=== PATIENT | male | born 1950 | race Caucasian/White ===

== ENCOUNTER 2025-08-31 09:29 | Emergency (ER) | payer OTHER ==
[~2025-08-31] VITALS: Ht 185.4 cm; Wt 97.5 kg
[2025-08-31 10:21] LABS: PLATELET COUNT (AUTO) 72 K/uL (150-450); RED BLOOD CELL COUNT(AUTO) 4.73 MIL/uL (4.5-6.0); RED CELL DISTRIBUTION WIDTH 15.3 % (11.5-15.0); WHITE BLOOD COUNT (AUTO) 3.0 K/uL (4.3-11.0)
[2025-08-31 10:28] LABS: CALCIUM, SERUM 8.9 mg/dL (8.5-10.1); CREATININE 1.0 mg/dL (0.6-1.3); SODIUM SERUM 141 mmol/L (136-145); UREA NITROGEN, BLOOD 17 mg/dL (7-18)
[2025-08-31 10:41] LABS: ASPARTATE AMINOTRANSFERASE 37 U/L (15-37); NT-PRO BNP 131 pg/mL (0-125); TOTAL PROTEIN, SERUM 7.2 g/dL (6.4-8.2)
[2025-08-31 10:48] LABS: EOSINOPHILS % (MANUAL) 1 % (0-4); LYMPHOCYTES % (MANUAL) 22 % (16-48); MONOCYTES % (MANUAL) 18 % (0-11.0); NEUTROPHILS % (MANUAL) 59 (42-76); PLATELET ESTIMATE DECREASED
[2025-08-31] MEDS ORDERED: DOXYCYCLINE HYCLATE (100 MG) 100 MG TABLET ONE (10:59)
[2025-08-31] MEDS: DOXYCYCLINE HYCLATE (100 MG) 100 MG TABLET PO ONE (11:01)
[2025-08-31] MEDS ORDERED: DOXY100C2 PO (11:19)
[2025-08-31 11:32] VITALS: BP 129/75; TEMP 98.5; O2SAT 96
== END 2025-08-31 11:32 | disposition home or self-care (01) ==
LOC: ER 09:48
DX: R07.89 Other chest pain (principal); R06.02 Shortness of breath; R05.9 Cough, unspecified; M25.472 Effusion, left ankle
CPT/HCPCS: 36415; 71045-TC; 80048-TC; 80076-TC; 83880; 84484-TC; 85027-TC